=== PATIENT | female | born 1960 | race Caucasian/White ===

== ENCOUNTER 2021-08-26 14:33 | Emergency (ER) | payer MEDICARE ==
[~2021-08-26] VITALS: Ht 157.5 cm; Wt 61.2 kg
[2021-08-26] MEDS ORDERED: OCTREOTIDE ACETATE 0.05 MG/ML AMP IV STA (15:02)
[2021-08-26 15:06] LABS: BASOPHILS % 0.5 % (0.0-1.0); EOSINOPHILS # (AUTO) 0.1 (0.0-0.4); EOSINOPHILS % 2.1 % (0.0-6.0); LYMPHOCYTES # (AUTO) 0.8 (1.0-3.2); LYMPHOCYTES % 21.8 % (18.0-39.1); MEAN CORPUSCULAR HEMOGLOBIN 33.5 pg (28-32); MEAN CORPUSCULAR HGB CONC 31.8 g/dL (31-35); MEAN CORPUSCULAR VOLUME 105.5 fL (81-99); MONOCYTES # (AUTO) 0.5 (0.2-0.8); MONOCYTES % 12.1 % (4.4-11.3); NEUTROPHILS # (AUTO) 2.4 (2.1-6.9); PLATELET COUNT 152 x10e3/uL (140-360); RED BLOOD COUNT 1.82 x10e6/uL (3.6-5.1)
[2021-08-26 15:10] LABS: HEMATOCRIT 19.2 % (34.2-44.1); HEMOGLOBIN 6.1 g/dL (12.0-16.0)
[2021-08-26 15:20] LABS: INR 1.58; PROTHROMBIN TIME 20.2 seconds (11.9-14.5)
[2021-08-26 15:21] LABS: PARTIAL THROMBOPLASTIN TIME 41.1 seconds (23.8-35.5)
[2021-08-26 15:29] LABS: ALANINE AMINOTRANSFERASE 12 IU/L (0-55); ALBUMIN 3.5 g/dL (3.5-5.0); ALBUMIN/GLOBULIN RATIO 1.1 (0.8-2.0); ALKALINE PHOSPHATASE 73 IU/L (40-150); ANION GAP 14.3 mmol/L (8-16); BLOOD UREA NITROGEN 17 mg/dL (7-26); BUN/CREATININE RATIO 12 (6-25); CALCIUM 8.1 mg/dL (8.4-10.2); CARBON DIOXIDE 23 mmol/L (22-29); CHLORIDE 103 mmol/L (98-107); CREATINE KINASE 46 IU/L (29-168); CREATININE, SERUM 1.45 mg/dL (0.57-1.11); GLUCOSE 261 mg/dL (74-118); POTASSIUM 4.3 mmol/L (3.5-5.1); SODIUM 136 mmol/L (136-145)
[2021-08-26] MEDS ORDERED: SODIUM CHLORIDE 0.9% 250ML 250 ML IV ONE (15:30)
[2021-08-26] MEDS ORDERED: FUROSEMIDE INJ 10 MG/ML 2 ML VIAL IV PRN (15:30)
[2021-08-26] MEDS ORDERED: OCTREOTIDE ACETATE 500 MCG in SODIUM CHLORIDE 0.9% 250ML 250 ML IV SCH (16:00)
[2021-08-26] MEDS ORDERED: SODIUM CHLORIDE 0.9% 250ML 500 ML ONE (18:23)
[2021-08-26] MEDS ORDERED: ONDANSETRON HCL INJ 2MG/ML 2ML 2 MG/ML VIAL IV STA (20:14)
[2021-08-26] MEDS ORDERED: ONDANSETRON HCL INJ 2MG/ML 2ML 2 MG/ML VIAL ONE (20:23)
[2021-08-26 21:15] VITALS: BP 123/60
== END 2021-08-26 20:55 | disposition other institution (70) ==
LOC: ER 14:58
DX: K74.60 Unspecified cirrhosis of liver (principal); D68.9 Coagulation defect, unspecified; D64.9 Anemia, unspecified; B19.20 Unspecified viral hepatitis C without hepatic coma; Z20.822 Contact with and (suspected) exposure to COVID-19
CPT/HCPCS: 36415; 71045; 80053; 82550; 82553; 84484; 85025; 85610; 85730; 86850; 86900; 86920; 99284; C9113; J2353; J2354; J2405; J7050; P9016; P9017; U0002

== ENCOUNTER → 2021-09-09 | Outpatient (CLI) | payer MEDICARE ==
[~2021-09-09] MED LIST: ALBUMIN 25% 12.5GM 50ML 100 ML IV ONE
[2021-09-09 12:39] LABS: HEMATOCRIT 21.2 % (34.2-44.1); HEMOGLOBIN 7.1 g/dL (12.0-16.0)
[2021-09-09 12:52] LABS: INR 1.46
[2021-09-09 12:53] LABS: PARTIAL THROMBOPLASTIN TIME 40.4 seconds (23.8-35.5)
[2021-09-09 15:06] LABS: BODY FLUID COLOR STRAW; BODY FLUID TYPE PERITONEAL
[2021-09-09 15:31] LABS: BODY FLUID APPEARANCE SL.CLOUDY; RBC,BODY FLUID 5000 cells/uL; WBC,BODY FLUID 140 cells/uL
[2021-09-09 18:55] LABS: LYMPHOCYTES,BODY FLUID 21 %; MONO/MACROPHG,BODY FLUID 77 %; NEUTROPHILS,BODY FLUID 2 %
== END ==
LOC: US 09:46
PROVIDERS: ATTEND Internal Medicine Hepatology
DX: R18.8 Other ascites (principal)
CPT/HCPCS: 36415; 49083; 85014; 85018; 85049; 85610; 85730; 89051

== ENCOUNTER 2021-09-19 16:15 | Emergency (ER) | payer MEDICARE ==
[~2021-09-19] VITALS: Ht 157.5 cm; Wt 61.2 kg
[2021-09-19 17:20] LABS: BASOPHILS % 0.3 % (0.0-1.0); EOSINOPHILS % 0.6 % (0.0-6.0); HEMOGLOBIN 7.6 g/dL (12.0-16.0); LYMPHOCYTES # (AUTO) 0.5 (1.0-3.2); LYMPHOCYTES % 6.9 % (18.0-39.1); MEAN CORPUSCULAR HEMOGLOBIN 33.3 pg (28-32); MEAN CORPUSCULAR HGB CONC 34.1 g/dL (31-35); MEAN CORPUSCULAR VOLUME 97.8 fL (81-99); MONOCYTES % 14.5 % (4.4-11.3); NEUTROPHILS # (AUTO) 5.1 (2.1-6.9); NEUTROPHILS % 77.5 % (38.7-80.0); PLATELET COUNT 184 x10e3/uL (140-360); RED BLOOD COUNT 2.28 x10e6/uL (3.6-5.1); RED CELL DISTRIBUTION WIDTH 17.1 % (11.7-14.4)
[2021-09-19 17:23] LABS: HEMATOCRIT 22.3 % (34.2-44.1)
[2021-09-19 17:29] LABS: CLARITY,URINE HAZY (CLEAR); COLOR,URINE AMBER (YELLOW); INR 1.59; KETONES,URINE NEGATIVE (NEGATIVE); LEUKOCYTE ESTERASE ,URINE NEGATIVE (NEGATIVE); NITRITE,URINE NEGATIVE (NEGATIVE); PROTEIN,URINE DIPSTICK NEGATIVE (NEGATIVE); PROTHROMBIN TIME 20.3 seconds (11.9-14.5); URINE UROBILINOGEN 0.2 mg/dL (0.2 - 1)
[2021-09-19 17:30] LABS: PARTIAL THROMBOPLASTIN TIME 41.5 seconds (23.8-35.5)
[2021-09-19 17:31] LABS: BACTERIA,URINE FEW /HPF; EPITHELIAL CELLS,URINE MODERATE /LPF
[2021-09-19 17:38] LABS: ALBUMIN 3.2 g/dL (3.5-5.0); ALBUMIN/GLOBULIN RATIO 0.9 (0.8-2.0); ANION GAP 14.1 mmol/L (8-16); CALCIUM 7.7 mg/dL (8.4-10.2); CREATININE, SERUM 1.78 mg/dL (0.57-1.11); POTASSIUM 4.1 mmol/L (3.5-5.1)
[2021-09-19 21:43] VITALS: BP 105/62
== END 2021-09-19 21:46 | disposition other institution (70) ==
LOC: ER 16:26
DX: R50.9 Fever, unspecified (principal); K65.2 Spontaneous bacterial peritonitis; U07.1 COVID-19; E11.65 Type 2 diabetes mellitus with hyperglycemia; D68.9 Coagulation defect, unspecified; K74.60 Unspecified cirrhosis of liver; D64.9 Anemia, unspecified; R94.31 Abnormal electrocardiogram [ECG] [EKG]
CPT/HCPCS: 36415; 71045; 74176; 80053; 81001; 83605; 85025; 85610; 85730; 86850; 86900; 87040; 93005; 99284; J2543; U0002